=== PATIENT | female | born 1975 | race African-American/Black ===

== ENCOUNTER 2019-03-07 14:45 | Emergency (ER) | payer OTHER ==
[~2019-03-07] VITALS: Ht 165.1 cm; Wt 90.7 kg
[2019-03-07] MEDS ORDERED: AUGMENTIN 500-1 EACH PO (15:10)
[2019-03-07] MEDS ORDERED: PROTONIX 20 MG20 MG PO (15:11)
[2019-03-07] MEDS ORDERED: PROZAC 10 MG CA10 MG PO (15:11)
[2019-03-07] MEDS ORDERED: ZYRTEC10 M5 PO (15:11)
[2019-03-07 16:09] LABS: HEMATOCRIT 38.9 % (37.0-47.0); HEMOGLOBIN 13.4 gm/dL (12.0-15.0); MCH 32.3 pg (26.0-34.0); MCHC 34.5 g/dL (28.0-37.0); MCV 93.7 fL (80.0-100.0); MPV 6.9 fl. (7.2-11.1); RBC 4.15 mil/uL (4.20-5.00); RDW-CV 12.1 % (10.5-14.5); WBC 8.8 thou/uL (4.0-11.0)
[2019-03-07 16:18] LABS: CALCIUM 9.7 mg/dL (8.5-10.1); CREATININE 1.2 mg/dL (0.6-1.3); POTASSIUM 3.6 mmol/L (3.5-5.1)
[2019-03-07 16:22] LABS: ALBUMIN 3.8 g/dL (3.4-5.0); TOTAL BILIRUBIN 0.6 mg/dL (<0.1-1.0); TOTAL PROTEIN 8.5 g/dL (6.4-8.2)
[2019-03-07 16:41] LABS: INFLUENZA A ANTIGEN Negative (Negative); INFLUENZA B ANTIGEN Negative (Negative)
[2019-03-07] MEDS ORDERED: FLONASE 0.05%50 MCG NARES (16:50)
[2019-03-07] MEDS ORDERED: ACETAMINOPHEN-1 EAC2 PO (16:50)
[2019-03-07] MEDS ORDERED: IBUPROFEN 800800 MG PO (16:50)
[2019-03-07 17:48] VITALS: BP 133/75
== END 2019-03-07 17:49 | disposition home or self-care (01) ==
LOC: M.ERS 14:45
PROVIDERS: Personal Emergency Response Attendant
DX: J34.89 Other specified disorders of nose and nasal sinuses (principal); F32.9 Major depressive disorder, single episode, unspecified; J45.909 Unspecified asthma, uncomplicated